=== PATIENT | male | born 1955 | race Caucasian/White ===

== ENCOUNTER → 2019-01-16 | Outpatient (CLI) | payer BC ==
[2016-06-19 16:10] VITALS: BP 109/66
[2019-01-16 10:40] LABS: BASO # 0.1 x10^3/uL (0.0-0.2); BASO % 1 % (0-3); EOS % 0 % (0-3); HEMATOCRIT 50.6 % (39.0-53.0); HEMOGLOBIN 17.2 g/dL (13.0-17.5); LYMPH # 0.6 x10^3/uL (1.0-4.8); LYMPH % 7 % (24-48); MEAN CORPUSCULAR HEMOGLOBIN 32 pg (25-35); MEAN CORPUSCULAR HGB CONC 34 g/dL (31-37); MEAN CORPUSCULAR VOLUME 95 fL (79-100); MONO # 0.9 x10^3/uL (0.0-1.1); MONO % 10 % (0-9); NEUT # 7.2 x10^3uL (1.8-7.7); NEUT % 82 % (31-73); PLATELET COUNT 169 x10^3/uL (140-400); RED BLOOD COUNT 5.32 x10^6/uL (4.30-5.70); RED CELL DISTRIBUTION WIDTH 12.5 % (11.5-14.5); WHITE BLOOD COUNT 8.8 x10^3/uL (4.0-11.0)
[2019-01-16 11:02] LABS: ALBUMIN 3.7 g/dL (3.4-5.0); ALBUMIN/GLOBULIN RATIO 0.9 (1.0-1.7); CALCIUM 9.1 mg/dL (8.5-10.1); CREATININE 1.8 mg/dL (0.7-1.3); GFR 38.3; POTASSIUM 4.4 mmol/L (3.5-5.1); TOTAL BILIRUBIN 0.5 mg/dL (0.2-1.0); TOTAL PROTEIN 7.6 g/dL (6.4-8.2)
--- NOTE | 2019-01-16 11:21 | RAD ---
KUB, 01/16/2019: HISTORY: Abdominal pain There are surgical clips in the lower pelvis, more numerous on the right. The abdominal gas pattern is unremarkable. There is no evidence organomegaly. Scattered arterial calcifications are present. There are mild degenerative changes in the spine. IMPRESSION: No acute abdominal abnormality is detected. Electronically signed by: Juan Srivastava MD (01/16/2019 11:18 AM) [facility]
--- NOTE | 2019-01-16 11:22 | RAD ---
Chest, 2 views, 01/16/2019: HISTORY: Cough The heart size is normal. There is a coronary artery radiopacity overlying the anterior aspect of the heart and compatible with calcification and/or a stent. No pulmonary infiltrate is seen. There is no evidence of pleural fluid. Mild spurring is present in the spine. IMPRESSION: No acute cardiopulmonary abnormality is detected. Electronically signed by: Juan Srivastava MD (01/16/2019 11:19 AM) [facility]
--- NOTE | 2019-01-16 11:56 | EKG ---
[address] [address] Test Date: 2019-01-16 Test Time: 11:00:44 Pat Name: DORA RUTH Department: Room: Gender: M [employer] Worker: : 1955 Requested By: SILVIANO PATEL Order Number: [id number] Reading MD: Measurements Intervals [place] Rate: 107 P: 68 MN: 136 QRS: -11 QRSD: 92 T: 31 QT: 328 QTc: 443 Interpretive Statements SINUS TACHYCARDIA LEFT ATRIAL ABNORMALITY LEFTWARD AXIS QRS(T) CONTOUR ABNORMALITY CONSIDER ANTEROSEPTAL MYOCARDIAL DAMAGE CONSISTENT WITH INFERIOR INFARCT PROBABLY OLD ABNORMAL ECG RI6.01 No previous ECG available for comparison
== END | disposition home or self-care (01) ==
LOC: LAB 10:16
PROVIDERS: ATTEND General Practice
DX: I70.8 Atherosclerosis of other arteries (principal); I49.9 Cardiac arrhythmia, unspecified
CPT/HCPCS: 36415; 71046; 74018; 80053; 82553; 84484; 85025; 93005

== ENCOUNTER 2019-03-02 15:14 | Emergency (ER) | payer BC ==
[~2019-03-02] VITALS: Ht 170 cm; Wt 88.5 kg
[2019-03-02 15:40] VITALS: BP 144/87
[2019-03-02 15:52] LABS: BASO # 0.1 x10^3/uL (0.0-0.2); BASO % 1 % (0-3); EOS # 0.1 x10^3/uL (0.0-0.7); EOS % 1 % (0-3); HEMATOCRIT 40.7 % (39.0-53.0); HEMOGLOBIN 13.4 g/dL (13.0-17.5); LYMPH # 0.5 x10^3/uL (1.0-4.8); LYMPH % 4 % (24-48); MEAN CORPUSCULAR HEMOGLOBIN 32 pg (25-35); MEAN CORPUSCULAR HGB CONC 33 g/dL (31-37); MEAN CORPUSCULAR VOLUME 97 fL (79-100); MONO # 0.9 x10^3/uL (0.0-1.1); MONO % 8 % (0-9); NEUT # 10.5 x10^3uL (1.8-7.7); NEUT % 87 % (31-73); PLATELET COUNT 206 x10^3/uL (140-400); RED BLOOD COUNT 4.18 x10^6/uL (4.30-5.70); RED CELL DISTRIBUTION WIDTH 13.4 % (11.5-14.5); WHITE BLOOD COUNT 12.1 x10^3/uL (4.0-11.0)
[2019-03-02 16:07] LABS: ALBUMIN 3.4 g/dL (3.4-5.0); CALCIUM 8.7 mg/dL (8.5-10.1); CREATININE 1.3 mg/dL (0.7-1.3); GFR 55.8; POTASSIUM 4.4 mmol/L (3.5-5.1); TOTAL BILIRUBIN 0.5 mg/dL (0.2-1.0); TOTAL PROTEIN 6.9 g/dL (6.4-8.2)
--- NOTE | 2019-03-02 17:18 | RAD ---
Exam: Ultrasound arterial study lower extremity right Indication: Swelling pain status post catheterization Technique: Real-time grayscale and color Doppler images of the right lower extremity were obtained by the department optometrist/practice owner. Comparisons: None FINDINGS: At the right groin in the area of bruising there is a 2.4 x 5.1 x 2.0 cm hypoechoic lobulated fluid collection without internal flow. No evidence of pseudoaneurysm. The right common femoral artery and right iliac vein demonstrate normal waveforms. Images labeled right common femoral vein series 1 image 14 are mislabeled and should read common femoral artery. IMPRESSION: 1. Hypoechoic lobulated fluid collection in the right groin measuring 2.4 x 5.1 x 2.0 cm likely representing hematoma, given procedural history. No internal flow detected. 2. No evidence for pseudoaneurysm. 3. Patent right external iliac and common femoral artery. Electronically signed by: Guy Thacker MD (03/02/2019 5:15 PM) [facility]
[2019-03-02] MEDS ORDERED: HYDR-3165 PO (17:22)
--- NOTE | 2019-03-02 17:23 | PHYS DOC ---
Past History Past Medical History: Angina, CAD Past Surgical History: No Surgical History Alcohol Use: Rarely Drug Use: None Adult General Chief Complaint Chief Complaint: POST-OP PROBLEM HPI HPI Patient is a [age] year old [sex] who presents with [] Review of Systems Review of Systems Constitutional: Denies fever or chills [] Eyes: Denies change in visual acuity, redness, or eye pain [] HENT: Denies nasal congestion or sore throat [] Respiratory: Denies cough or shortness of breath [] Cardiovascular: No additional information not addressed in HPI [] GI: Denies abdominal pain, nausea, vomiting, bloody stools or diarrhea [] : Denies dysuria or hematuria [] Musculoskeletal: Denies back pain or joint pain [] Integument: Denies rash or skin lesions [] Neurologic: Denies headache, focal weakness or sensory changes [] Endocrine: Denies polyuria or polydipsia [] All other systems were reviewed and found to be within normal limits, except as documented in this note. Allergies Allergies Allergies Coded Allergies Type Severity Reaction Last Updated Verified No Known Drug Allergies 06/19/16 No Physical Exam Physical Exam Constitutional: Well developed, well nourished, no acute distress, non-toxic appearance. [] HENT: Normocephalic, atraumatic, bilateral external ears normal, oropharynx moist, no oral exudates, nose normal. [] Eyes: PERRLA, EOMI, conjunctiva normal, no discharge. [] Neck: Normal range of motion, no tenderness, supple, no stridor. [] Cardiovascular:Heart rate regular rhythm, no murmur [] Lungs & Thorax: Bilateral breath sounds clear to auscultation [] Abdomen: Bowel sounds normal, soft, no tenderness, no masses, no pulsatile masses. [] Skin: Warm, dry, no erythema, no rash. [] Back: No tenderness, no CVA tenderness. [] Extremities: No tenderness, no cyanosis, no clubbing, ROM intact, no edema. [] Neurologic: Alert and oriented X 3, normal motor function, normal sensory function, no focal deficits noted. [] Psychologic: Affect normal, judgement normal, mood normal. [] Current Patient Data Vital Signs Vital Signs Date Time Temp Pulse Resp B/P (MAP) Pulse Ox O2 Delivery O2 Flow Rate FiO2 03/02/19 15:40 98.0 89 16 96 Room Air Lab Results Laboratory Tests Test 03/02/19 15:35 White Blood Count 12.1 x10^3/uL (4.0-11.0) H Red Blood Count 4.18 x10^6/uL (4.30-5.70) L Hemoglobin 13.4 g/dL (13.0-17.5) Hematocrit 40.7 % (39.0-53.0) Mean Corpuscular Volume 97 fL (79-100) Mean Corpuscular Hemoglobin 32 pg (25-35) Mean Corpuscular Hemoglobin Concent 33 g/dL (31-37) Red Cell Distribution Width 13.4 % (11.5-14.5) Platelet Count 206 x10^3/uL (140-400) Neutrophils (%) (Auto) 87 % (31-73) H Lymphocytes (%) (Auto) 4 % (24-48) L Monocytes (%) (Auto) 8 % (0-9) Eosinophils (%) (Auto) 1 % (0-3) Basophils (%) (Auto) 1 % (0-3) Neutrophils # (Auto) 10.5 x10^3uL (1.8-7.7) H Lymphocytes # (Auto) 0.5 x10^3/uL (1.0-4.8) L Monocytes # (Auto) 0.9 x10^3/uL (0.0-1.1) Eosinophils # (Auto) 0.1 x10^3/uL (0.0-0.7) Basophils # (Auto) 0.1 x10^3/uL (0.0-0.2) Prothrombin Time 10.1 SEC (9.4-11.4) Prothrombin Time INR 1.0 (0.9-1.1) PTT 26 SEC (23-33) Sodium Level 138 mmol/L (136-145) Potassium Level 4.4 mmol/L (3.5-5.1) Chloride Level 102 mmol/L (98-107) Carbon Dioxide Level 24 mmol/L (21-32) Anion Gap 12 (6-14) Blood Urea Nitrogen 24 mg/dL (8-26) Creatinine 1.3 mg/dL (0.7-1.3) Estimated GFR (Cockcroft-Gault) 55.8 BUN/Creatinine Ratio 18 (6-20) Glucose Level 130 mg/dL (70-99) H Calcium Level 8.7 mg/dL (8.5-10.1) Magnesium Level 2.0 mg/dL (1.8-2.4) Total Bilirubin 0.5 mg/dL (0.2-1.0) Aspartate Amino Transferase (AST) 19 U/L (15-37) Alanine Aminotransferase (ALT) 28 U/L (16-63) Alkaline Phosphatase 74 U/L (46-116) Total Protein 6.9 g/dL (6.4-8.2) Albumin 3.4 g/dL (3.4-5.0) Albumin/Globulin Ratio 1.0 (1.0-1.7) EKG EKG [] Radiology/Procedures Radiology/Procedures [] Course & Med Decision Making Course & Med Decision Making Pertinent Labs and Imaging studies reviewed. (See chart for details) [] Dragon Disclaimer Dragon Disclaimer This electronic medical record was generated, in whole or in part, using a voice recognition dictation system. Departure Departure: Impression: Primary Impression: Hematoma following percutaneous transluminal coronary angioplasty Disposition: HOME, SELF-CARE Condition: STABLE Referrals: SILVIANO PATEL DO (PCP) Patient Instructions: Hematoma, [id number] Additional Instructions: ICE area 20 min on then leave off for next 20 min as needed for next few days. Take it easy and try to limit excessive movement about hip. Keep area clean and dry. Your child welfare caseworker wants you to continue your prescribed medications and to call and make follow up appointment for the next 2-5 days Scripts Hydrocodone Bit/Acetaminophen (NORCO 5-325 TABLET) 1 Each Tablet 0.5-1 TAB PO Q6HRS PRN for PAIN, #10 TAB Prov: RUSLAN SCHAFFER DO 03/02/19 RUSLAN SCHAFFER DO Mar 02, 2019 17:23
[2019-03-02] MEDS ORDERED: HYDROcodone/APAP 5/325MG 1 TAB TABLET PO ONE (17:30)
== END 2019-03-02 17:25 | disposition home or self-care (01) ==
LOC: ER 15:14
DX: I97.638 Postprocedural hematoma of a circulatory system organ or structure following other circulatory system procedure (principal); I25.10 Atherosclerotic heart disease of native coronary artery without angina pectoris; Z98.61 Coronary angioplasty status
CPT/HCPCS: 36415; 80053; 83735; 85025; 85610; 85730; 93923; 99285

== ENCOUNTER 2019-08-17 16:50 | Emergency (ER) | payer BC ==
[~2019-08-17] VITALS: Ht 162.6 cm; Wt 95.3 kg
[~2019-08-17 16:50] MED LIST: HYDR-3165 PO
--- NOTE | 2019-08-17 17:54 | RAD ---
PA and lateral chest. HISTORY: Short of breath PA and lateral views were taken of the chest. This focal atelectasis or infiltrate along the left heart border. Heart is normal in size. There is no pleural effusion. No other infiltrates are noted. IMPRESSION: 1. Mild atelectasis or infiltrate along the left heart border which is new compared to the study study from December 2018. Electronically signed by: Francisco Kaplan MD (08/17/2019 5:51 PM) [id number]
[2019-08-17 18:22] LABS: BASO # 0.1 x10^3/uL (0.0-0.2); BASO % 1 % (0-3); EOS # 0.1 x10^3/uL (0.0-0.7); EOS % 1 % (0-3); HEMATOCRIT 43.7 % (39.0-53.0); HEMOGLOBIN 14.8 g/dL (13.0-17.5); LYMPH # 1.8 x10^3/uL (1.0-4.8); LYMPH % 12 % (24-48); MEAN CORPUSCULAR HEMOGLOBIN 34 pg (25-35); MEAN CORPUSCULAR HGB CONC 34 g/dL (31-37); MEAN CORPUSCULAR VOLUME 100 fL (79-100); MONO # 2.1 x10^3/uL (0.0-1.1); MONO % 14 % (0-9); NEUT # 10.5 x10^3uL (1.8-7.7); NEUT % 72 % (31-73); PLATELET COUNT 216 x10^3/uL (140-400); RED BLOOD COUNT 4.38 x10^6/uL (4.30-5.70); RED CELL DISTRIBUTION WIDTH 14.3 % (11.5-14.5); WHITE BLOOD COUNT 14.7 x10^3/uL (4.0-11.0)
[2019-08-17 18:29] LABS: CALCIUM 9.7 mg/dL (8.5-10.1); CREATININE 1.7 mg/dL (0.7-1.3); GFR 40.9; POTASSIUM 4.5 mmol/L (3.5-5.1)
[2019-08-17 18:37] LABS: BACTERIA,URINE 0 /HPF (0-FEW); BILIRUBIN,URINE NEG (NEG); CLARITY,URINE HAZY; COLOR,URINE AMBER; GLUCOSE,URINE 100 mg/dL (NEG); NITRITE,URINE NEG (NEG); RBC,URINE 0 /HPF (0-2); SQUAMOUS EPITHELIAL CELL,UR OCC /LPF; UROBILINOGEN,URINE 0.2 mg/dL (0.2 mg/dL); WBC,URINE 0 /HPF (0-4)
[2019-08-17 18:42] LABS: ALBUMIN 3.3 g/dL (3.4-5.0); ALBUMIN/GLOBULIN RATIO 0.9 (1.0-1.7); TOTAL BILIRUBIN 0.9 mg/dL (0.2-1.0); TOTAL PROTEIN 6.8 g/dL (6.4-8.2)
[2019-08-17] MEDS ORDERED: IV NORMAL SALINE 500ML 500 ML IV ONE (18:45)
--- NOTE | 2019-08-17 18:55 | PHYS DOC ---
Past History Past Medical History: Angina, CAD Additional Past Surgical Histo: Cardiac stents Smoking: Quit Greater Than 1 Year Alcohol Use: Rarely Drug Use: None Adult General Chief Complaint Chief Complaint: ABDOMINAL PAIN HPI HPI Patient is a 63-year-old male was presenting with chief complaint of dizzy and abdominal pain apparently for the last 24 hours or so he is been a little dizzy somewhat lightheaded when he tries to walk short of breath at baseline and also with exertion over the last day or 2. Denies chest pain no fever that he knows of is also had sharp left lower quadrant pain it was really bad when it started last night he started to get a little better but still dull in the left lower quadrant social with occasional blood when he wipes and some loose stool but no overt diarrhea positive nausea again denies chest pain just doesn't feel that good. Probably when he walks denies diplopia no known history of congestive heart failure that he knows of Review of Systems Review of Systems Constitutional: Denies fever or chills [] Eyes: Denies change in visual acuity, redness, or eye pain [] HENT: : Denies dysuria or hematuria [] Musculoskeletal: Denies back pain or joint pain [] All other systems were reviewed and found to be within normal limits, except as documented in this note. Mild cough Current Medications Current Medications Current Medications Medications (Trade) Dose Ordered Sig/Romero Start Time Stop Time Status Last Admin Dose Admin Levofloxacin/ Dextrose 150 ml @ 100 mls/hr 1X ONCE 08/17/19 18:45 08/17/19 20:14 Sodium Chloride 500 ml @ 0 mls/hr 1X ONCE 08/17/19 18:45 08/17/19 18:46 DC Allergies Allergies Allergies Coded Allergies Type Severity Reaction Last Updated Verified No Known Drug Allergies 06/19/16 No Physical Exam Physical Exam Constitutional: Well developed, well nourished, no acute distress, non-toxic appearance. [] HENT: Normocephalic, atraumatic, bilateral external ears normal, oropharynx moist, no oral exudates, nose normal. [] Eyes: PERRLA, EOMI, conjunctiva normal, no discharge. [] Neck: Normal range of motion, no tenderness, supple, no stridor. [] Cardiovascular:Heart rate regular rhythm, no murmur [] Lungs & Thorax: Bilateral breath sounds clear to auscultation [] Abdomen: Bowel sounds normal, soft, left lower quadrant tenderness mild, no masses, no pulsatile masses. [] Skin: Scattered ecchymosis noted throughout the body patient states this is just from touching his skin while he is on Radha Leora Back: No tenderness, no CVA tenderness. [] Extremities: No tenderness, no cyanosis, no clubbing, ROM intact, no edema. [] Neurologic: Alert and oriented X 3, normal motor function, normal sensory function, no focal deficits noted. [][id number] intact bilaterally extraocular movements intact no nystagmus speech normal Psychologic: Affect normal, judgement normal, mood normal. [] Current Patient Data Vital Signs erature (Fahrenheit): * 98.1 degrees F (97.6-99.5) Patient Temperature * 98.1 degrees F (97.5-99.5) Temperature Source * Oral Blood Pressure Systolic * 141 mm Hg (100-140) H Blood Pressure Diastolic * 84 mm Hg (60-100) Blood Pressure Mean * 103 mm Hg Blood Pressure Location * Right Arm Blood Pressure Source * Automatic Cuff Pulse Rate * 96 beats per minute (60-90) H Pulse Assessment Method * Monitor Respiratory Rate * 24 breaths per minute (12-24) Oxygen Delivery Method * Room Air Bedside Pulse Oximetry * 97 % Treatment Prior to Arrival Lab Results Laboratory Tests Test 08/17/19 17:52 08/17/19 18:00 Urine Collection Type Unknown Urine Color [place] Urine Clarity Hazy Urine pH 5.5 Urine Specific [place] >=1.030 Urine Protein 30 mg/dl (NEG-TRACE) Urine Glucose (UA) 100 mg/dL (NEG) Urine Ketones (Stick) 15 mg/dL (NEG) Urine Blood Neg (NEG) Urine Nitrite Neg (NEG) Urine Bilirubin Neg (NEG) Urine Urobilinogen Dipstick 0.2 mg/dL (0.2 mg/dL) Urine Leukocyte Esterase Neg (NEG) Urine RBC 0 /HPF (0-2) Urine WBC 0 /HPF (0-4) Urine Squamous Epithelial Cells Occ /LPF Urine Bacteria 0 /HPF (0-FEW) Urine Mucus Marked /LPF White Blood Count 14.7 x10^3/uL (4.0-11.0) H Red Blood Count 4.38 x10^6/uL (4.30-5.70) Hemoglobin 14.8 g/dL (13.0-17.5) Hematocrit 43.7 % (39.0-53.0) Mean Corpuscular Volume 100 fL (79-100) Mean Corpuscular Hemoglobin 34 pg (25-35) Mean Corpuscular Hemoglobin Concent 34 g/dL (31-37) Red Cell Distribution Width 14.3 % (11.5-14.5) Platelet Count 216 x10^3/uL (140-400) Neutrophils (%) (Auto) 72 % (31-73) Lymphocytes (%) (Auto) 12 % (24-48) L Monocytes (%) (Auto) 14 % (0-9) H Eosinophils (%) (Auto) 1 % (0-3) Basophils (%) (Auto) 1 % (0-3) Neutrophils # (Auto) 10.5 x10^3uL (1.8-7.7) H Lymphocytes # (Auto) 1.8 x10^3/uL (1.0-4.8) Monocytes # (Auto) 2.1 x10^3/uL (0.0-1.1) H Eosinophils # (Auto) 0.1 x10^3/uL (0.0-0.7) Basophils # (Auto) 0.1 x10^3/uL (0.0-0.2) Sodium Level 138 mmol/L (136-145) Potassium Level 4.5 mmol/L (3.5-5.1) Chloride Level 101 mmol/L (98-107) Carbon Dioxide Level 32 mmol/L (21-32) Anion Gap 5 (6-14) L Blood Urea Nitrogen 27 mg/dL (8-26) H Creatinine 1.7 mg/dL (0.7-1.3) H Estimated GFR (Cockcroft-Gault) 40.9 BUN/Creatinine Ratio 16 (6-20) Glucose Level 112 mg/dL (70-99) H Calcium Level 9.7 mg/dL (8.5-10.1) Total Bilirubin 0.9 mg/dL (0.2-1.0) Aspartate Amino Transferase (AST) 16 U/L (15-37) Alanine Aminotransferase (ALT) 40 U/L (16-63) Alkaline Phosphatase 88 U/L (46-116) JL-Wlk-[id number]-Type Natriuretic Peptide 1177 pg/mL (0-124) H Total Protein 6.8 g/dL (6.4-8.2) Albumin 3.3 g/dL (3.4-5.0) L Albumin/Globulin Ratio 0.9 (1.0-1.7) L EKG EKG []EKG shows a normal sinus rhythm with a rate of 89 QTC is 427 Q waves in the inferior leads borderline ST segment depression in V5 an V6 no STEMI Radiology/Procedures Radiology/Procedures []No suspicious osseous lesions or acute fractures. IMPRESSION: 1. Findings of acute simple diverticulitis at the descending colon/sigmoid colon junction. No evidence for perforation or adjacent abscess. 2. No renal or ureteral calculi. No evidence for obstructive uropathy. Exposure: One or more of the following in the visualized dose reduction techniques were utilized for this examination: 1. Automated exposure control 2. Adjustment of the MA and/or KV according to patient size 3. Use of iterative of reconstructive technique Electronically signed by: Guy Thacker MD (08/17/2019 8:07 PM) [facility] Impressions: PA and lateral views were taken of the chest. This focal atelectasis or infiltrate along the left heart border. Heart is normal in size. There is no pleural effusion. No other infiltrates are noted. IMPRESSION: 1. Mild atelectasis or infiltrate along the left heart border which is new compared to the study study from December 2018. Electronically signed by: Francisco Kaplan MD (08/17/2019 5:51 PM) [facility] DICTATED AND SIGNED BY: FRANCISCO KAPLAN MD DATE: 08/17/19 1753 CC: JEET CHOUDHURY DO; PCP,NO ~ Course & Med Decision Making Course & Med Decision Making Pertinent Labs and Imaging studies reviewed. (See chart for details) []Mild WISAM consistent with likely dehydration. BNP is elevated This is a 63-year-old male with a history of rheumatoid arthritis on prednisone Radha Leora due to atrial fibrillation 3 cardiac stents stroke 2 also on Plavix was presenting with multiple complaints dizzy lightheaded left lower quadrant pain and some increased shortness of breath with exertion. His stent placed a few months back were primary complaint was shortness of breath as well. That was [facility] at [facility]. Differential would include anemia diverticulitis UTI pneumonia CVA no objective neurologic findings however. Final plan: 62-year-old male prior CVA prior [place] present with dizziness lightheadedness in the setting of left lower quadrant pain found to have simple diverticulitis with leukocytosis and a mild bump in the creatinine. Could be a pneumonia is not really coughing however and the chest x-ray finding by my read is fairly subtle. I discussed with the patient and the in detail I spent 10-15 minutes talking to them about the findings specific findings I told him I preferred admission for hydration and IV antibiotics and close monitoring. Also consideration of echocardiogram due to the shortness of breath in the mild elevation of BNP. The patient says he is feeling better and he really does not want to be admitted. He understands the risks and benefits as elevated amount to him he understands that he could get worse we gave strict return precautions and he will come back anytime I think it is overall reasonable for him to try this at home although I did prefer admission. He understands up her prescription for Augmentin was provided patient is oxygenating well on room air vital signs are stable, noted the respiratory rate by the nurses my respiratory rate was 16 on evaluation. Dragon Disclaimer Dragon Disclaimer This electronic medical record was generated, in whole or in part, using a voice recognition dictation system. Departure Departure: Impression: Primary Impression: Diverticulitis Additional Impression: Dehydration Disposition: 01 HOME, SELF-CARE Condition: STABLE Referrals: PCP,NO (PCP) Scripts Amoxicillin/Potassium Clav (AUGMENTIN 875-125 TABLET) 1 Each Tablet 1 TAB PO BID for diverticulitis for 10 Days, #20 TAB 0 Refills Prov: WAI RASCON MD 08/17/19 Problem Qualifiers WAI RASCON MD Aug 17, 2019 18:54
[2019-08-17 19:16] VITALS: BP 111/61
--- NOTE | 2019-08-17 19:42 | RAD ---
STUDY: CT head without contrast INDICATION: Dizziness. Headache. COMPARISON: 06/19/2016 TECHNIQUE: Axial CT imaging through the head without the use of intravenous contrast. Sagittal and coronal reformats were obtained. One or more of the following individualized dose reduction techniques were utilized for this examination: 1. Automated exposure control 2. Adjustment of the mA and/or kV according to patient size 3. Use of iterative reconstruction technique. FINDINGS: Mild motion degradation. Diagnostic utility is mostly maintained. No acute intracranial hemorrhage. No mass effect, midline shift or hydrocephalus. No CT evidence for an acute cortical infarction. Parenchymal volume loss. White matter findings most likely on account of chronic microvascular ischemic change. Intracranial atherosclerotic calcifications. Intact calvarium. Mild sphenoid sinus mucosal thickening and a potential retention cyst. IMPRESSION: No acute intracranial abnormality by CT. Chronic findings as above. Electronically signed by: COLBY HANSEN MD (08/17/2019 7:39 PM) [facility]
--- NOTE | 2019-08-17 19:51 | EKG ---
[address] [address] Test Date: 2019-08-17 Test Time: 18:30:32 Pat Name: DORA RUTH Department: Room: Gender: M It Account Manager: : 1955 Requested By: JEET CHOUDHURY Order Number: [id number] Reading MD: Measurements Intervals [place] Rate: 89 P: 48 CO: 144 QRS: 0 QRSD: 88 T: 36 QT: 346 QTc: 427 Interpretive Statements SINUS RHYTHM LEFTWARD AXIS LOW LIMB LEAD VOLTAGE QRS(T) CONTOUR ABNORMALITY CONSISTENT WITH INFERIOR INFARCT PROBABLY OLD ABNORMAL ECG RI6.01 No previous ECG available for comparison
--- NOTE | 2019-08-17 20:11 | RAD ---
Exam: CT abdomen and pelvis without contrast INDICATION: Left lower quadrant pain, flank pain TECHNIQUE: Sequential axial images through the abdomen and pelvis obtained without IV contrast. Sagittal and coronal reformatted images were reconstructed from the axial data and reviewed. Comparisons: None FINDINGS: Heart size is normal. No pericardial effusion. Visualized lung bases are clear. No pleural effusion. Evaluation of the solid organs is limited secondary to noncontrast technique. Liver, spleen, pancreas, gallbladder and adrenals are unremarkable. No perinephric inflammation or hydronephrosis. No renal or ureteral calculi. Bladder is decompressed not well evaluated. Prostate is not enlarged. There is diverticulosis of the sigmoid colon with an area of wall thickening and adjacent fat stranding at the descending colon/sigmoid colon junction. No evidence for perforation or adjacent fluid collection. Remainder of the large and small bowel are unremarkable. Appendix is normal. No free intra-abdominal air or fluid. Abdominal aorta has normal course and caliber. No enlarged abdominal lymph nodes are identified. No suspicious osseous lesions or acute fractures. IMPRESSION: 1. Findings of acute simple diverticulitis at the descending colon/sigmoid colon junction. No evidence for perforation or adjacent abscess. 2. No renal or ureteral calculi. No evidence for obstructive uropathy. Exposure: One or more of the following in the visualized dose reduction techniques were utilized for this examination: 1. Automated exposure control 2. Adjustment of the MA and/or KV according to patient size 3. Use of iterative of reconstructive technique Electronically signed by: Guy Thacker MD (08/17/2019 8:07 PM) [facility]
[2019-08-17] MEDS ORDERED: AMOX1TAB61 PO (20:37)
[2019-08-17] MEDS ORDERED: AMOXICILLIN/K CLAV 875/125MG TABLET. PO ONE (20:45)
== END 2019-08-17 20:47 | disposition home or self-care (01) ==
LOC: ER 16:50
DX: K57.30 Diverticulosis of large intestine without perforation or abscess without bleeding (principal); E86.0 Dehydration; I25.10 Atherosclerotic heart disease of native coronary artery without angina pectoris; Z87.891 Personal history of nicotine dependence
CPT/HCPCS: 36415; 70450; 71046; 74176; 80053; 81001; 83605; 83880; 84484; 85025; 93005; 96365; 99285; J1956; J7040; 87040

== ENCOUNTER 2019-08-19 23:18 | Emergency (ER) | payer BC ==
[~2019-08-19] VITALS: Ht 162.6 cm; Wt 88.5 kg
[~2019-08-19 23:18] MED LIST changes: +AMOX1TAB61 PO
[2019-08-20] MEDS ORDERED: IV NORMAL SALINE 1,000ML 1,000 ML IV ONE (00:30)
[2019-08-20 00:38] LABS: BASO # 0.1 x10^3/uL (0.0-0.2); BASO % 1 % (0-3); EOS # 0.1 x10^3/uL (0.0-0.7); EOS % 1 % (0-3); HEMATOCRIT 44.3 % (39.0-53.0); HEMOGLOBIN 15.1 g/dL (13.0-17.5); LYMPH # 2.2 x10^3/uL (1.0-4.8); LYMPH % 18 % (24-48); MEAN CORPUSCULAR HEMOGLOBIN 33 pg (25-35); MEAN CORPUSCULAR HGB CONC 34 g/dL (31-37); MEAN CORPUSCULAR VOLUME 97 fL (79-100); MONO # 1.5 x10^3/uL (0.0-1.1); MONO % 12 % (0-9); NEUT # 8.4 x10^3uL (1.8-7.7); NEUT % 68 % (31-73); PLATELET COUNT 261 x10^3/uL (140-400); RED BLOOD COUNT 4.56 x10^6/uL (4.30-5.70); RED CELL DISTRIBUTION WIDTH 14.1 % (11.5-14.5); WHITE BLOOD COUNT 12.4 x10^3/uL (4.0-11.0)
[2019-08-20 00:40] VITALS: BP 114/55
[2019-08-20 00:42] LABS: CREATININE 1.6 mg/dL (0.7-1.3); GFR 43.9; POTASSIUM 4.6 mmol/L (3.5-5.1)
[2019-08-20 00:48] LABS: FECAL OB PT POSITIVE (NEG)
[2019-08-20 00:48] LABS: ALBUMIN 3.5 g/dL (3.4-5.0); ALBUMIN/GLOBULIN RATIO 0.8 (1.0-1.7); TOTAL BILIRUBIN 0.9 mg/dL (0.2-1.0); TOTAL PROTEIN 7.9 g/dL (6.4-8.2)
--- NOTE | 2019-08-20 00:58 | PHYS DOC ---
Past History Past Medical History: Angina, CAD, High Cholesterol, Hypertension Past Surgical History: Other Additional Past Surgical Histo: Cardiac stents Smoking: Quit Greater Than 1 Year Alcohol Use: Occasionally Drug Use: None Adult General Chief Complaint Chief Complaint: RECTAL BLEED [facility] HPI 63-year-old male presents with rectal bleeding. He has had bright red rectal bleeding and rectal pain for the last couple of days. The patient was diagnosed 2 days ago with diverticulitis and placed on Augmentin. He was not having rectal bleeding at that time. The patient is on Eliquis for atrial fibrillation and Plavix for cardiac stents. He continues to have stool mixed with his blood. His rectum is very sore at this time. He has been using some Preparation H. Patient denies nausea, vomiting, lightheadedness, headache. Denies fever or chills. He has no abdominal pain. Review of Systems Review of Systems Constitutional: Denies fever or chills [] Eyes: Denies change in visual acuity, redness, or eye pain [] HENT: Denies nasal congestion or sore throat [] Respiratory: Denies cough or shortness of breath [] Cardiovascular: No additional information not addressed in HPI [] GI: Denies abdominal pain, nausea, vomiting, bloody stools or diarrhea [] : Rectal bleeding[] Musculoskeletal: Denies back pain or joint pain [] Integument: Denies rash or skin lesions [] Neurologic: Denies headache, focal weakness or sensory changes [] Endocrine: Denies polyuria or polydipsia [] All other systems were reviewed and found to be within normal limits, except as documented in this note. Current Medications Current Medications Current Medications Medications (Trade) Dose Ordered Sig/Romero Start Time Stop Time Status Last Admin Dose Admin Sodium Chloride 1,000 ml @ 1,000 mls/hr 1X ONCE 08/20/19 00:30 08/20/19 01:29 08/20/19 00:17 1,000 MLS/HR Allergies Allergies Allergies Coded Allergies Type Severity Reaction Last Updated Verified No Known Drug Allergies 06/19/16 No Physical Exam Physical Exam Constitutional: Well developed, well nourished, no acute distress, non-toxic appearance. [] HENT: Normocephalic, atraumatic, bilateral external ears normal, oropharynx moist, no oral exudates, nose normal. [] Eyes: PERRLA, EOMI, conjunctiva normal, no discharge. [] Neck: Normal range of motion, no tenderness, supple, no stridor. [] Cardiovascular:Heart rate regular rhythm, no murmur [] Lungs & Thorax: Bilateral breath sounds clear to auscultation [] Abdomen: Bowel sounds normal, soft, no tenderness, no masses, no pulsatile masses. [] Skin: Warm, dry, no erythema, no rash. [] Back: No tenderness, no CVA tenderness. [] Extremities: No tenderness, no cyanosis, no clubbing, ROM intact, no edema. [] Neurologic: Alert and oriented X 3, normal motor function, normal sensory function, no focal deficits noted. [] Psychologic: Affect normal, judgement normal, mood normal. Rectal: Erythematous and irritated skin around the rectum. No obvious hemorrhoids. Tenderness with exam. No obvious blood with GIOVANNA. [] EKG EKG [] Radiology/Procedures Radiology/Procedures [] Course & Med Decision Making Course & Med Decision Making Pertinent Labs and Imaging studies reviewed. (See chart for details) Patient's labs are unremarkable. He is not anemic. I will advise the patient to hold his elbow is for 1 or 2 days. I will have him continue his Plavix due to the stents. He will follow-up with his physician for further guidance on Wednesday morning. He is stable for discharge at this time. [] Dragon Disclaimer Dragon Disclaimer This electronic medical record was generated, in whole or in part, using a voice recognition dictation system. Departure Departure: Impression: Primary Impression: Rectal bleeding Disposition: HOME, SELF-CARE Condition: STABLE Referrals: PCP,[facility] (PCP) Patient Instructions: Rectal Bleeding, [id number] JEET CHOUDHURY DO Aug 20, 2019 00:58
== END 2019-08-20 01:05 | disposition home or self-care (01) ==
LOC: ER 23:18
DX: K62.5 Hemorrhage of anus and rectum (principal); E78.00 Pure hypercholesterolemia, unspecified; I10 Essential (primary) hypertension; I25.10 Atherosclerotic heart disease of native coronary artery without angina pectoris; Z87.891 Personal history of nicotine dependence
CPT/HCPCS: 36415; 80053; 82274; 85025; 99284-25; J7030

== ENCOUNTER 2019-10-14 03:49 | Inpatient (IN) | payer BC ==
[~2019-10-14] VITALS: Ht 165.1 cm; Wt 92.3 kg
[2019-10-14] MEDS ORDERED: metroNIDAZOLE 500mg PREMIX 500 MG/100 ML BAG IV ONE (07:00)
[2019-10-14] MEDS ORDERED: ONDANSETRON PF 4 MG/2 ML VIAL. ONE ×2 (07:02→07:30)
[2019-10-14] MEDS ORDERED: CIPROFLOXACIN PREMIX 400 MG/200 ML BAG IV ONE (07:30)
[2019-10-14 10:50] VITALS: BP 136/90
[2019-10-14] MEDS ORDERED: ATORVASTATIN CA80 MG PO (13:09)
[2019-10-14] MEDS ORDERED: RAMI10CA53 PO (13:09)
[2019-10-14] MEDS ORDERED: EZET10TA20 PO (13:09)
[2019-10-14] MEDS ORDERED: APIX5TAB3 PO (13:09)
[2019-10-14] MEDS ORDERED: ICOS1CAP PO (13:09)
[2019-10-14] MEDS ORDERED: PRED-220 PO (13:09)
[2019-10-14] MEDS ORDERED: GABA600T7 PO (13:09)
[2019-10-14] MEDS ORDERED: METO-239 PO (13:09)
[2019-10-14] MEDS ORDERED: CLOP75TA57 PO (13:09)
[2019-10-14] MEDS ORDERED: DILT120C99 PO (13:11)
[2019-10-14] MEDS ORDERED: IV NORMAL SALINE 1,000ML 1,000 ML IV SCH (13:15)
[2019-10-14] MEDS ORDERED: fentaNYL PF 250 MCG/5 ML VIAL IV ONE (13:15)
[2019-10-14 14:04] LABS: FECAL OB PT POSITIVE (NEG)
[2019-10-14 14:09] LABS: HEMATOCRIT 45.1 % (39.0-53.0); HEMOGLOBIN 15.2 g/dL (13.0-17.5); MEAN CORPUSCULAR HEMOGLOBIN 34 pg (25-35); MEAN CORPUSCULAR HGB CONC 34 g/dL (31-37); MEAN CORPUSCULAR VOLUME 101 fL (79-100); RED BLOOD COUNT 4.47 x10^6/uL (4.30-5.70); WHITE BLOOD COUNT 15.4 x10^3/uL (4.0-11.0)
[2019-10-14 14:10] LABS: BASO # 0.1 x10^3/uL (0.0-0.2); BASO % 1 % (0-3); EOS # 0.1 x10^3/uL (0.0-0.7); EOS % 1 % (0-3); LYMPH # 1.2 x10^3/uL (1.0-4.8); LYMPH % 8 % (24-48); MONO # 1.8 x10^3/uL (0.0-1.1); MONO % 12 % (0-9); NEUT # 12.2 x10^3uL (1.8-7.7); NEUT % 79 % (31-73); PLATELET COUNT 197 x10^3/uL (140-400); RED CELL DISTRIBUTION WIDTH 13.7 % (11.5-14.5)
[2019-10-14 14:15] LABS: % ATYL 4 % (0-0); % BANDS 3 % (0-9); % BASOS 1 % (0-3); % EOS 0 % (0-5); % LYMPHS 8 % (24-48); % MONOS 14 % (0-10); % SEGS 70 % (35-66); PLT ESTIMATE ADEQUATE (ADEQUATE)
[2019-10-14 14:21] LABS: ALBUMIN 3.5 g/dL (3.4-5.0); CALCIUM 8.9 mg/dL (8.5-10.1); CREATININE 1.4 mg/dL (0.7-1.3); TOTAL BILIRUBIN 0.5 mg/dL (0.2-1.0); TOTAL PROTEIN 7.1 g/dL (6.4-8.2)
[2019-10-14 14:24] LABS: DIRECT BILIRUBIN 0.2 mg/dL (0.0-0.2); POTASSIUM 3.9 mmol/L (3.5-5.1)
[2019-10-14 15:00] VITALS: BP 158/83
[2019-10-14] MEDS: IV 1/2 NORMAL SALINE 1,000 ML IV SCH (15:14)
[2019-10-14 15:18] LABS: BACTERIA,URINE FEW /HPF (0-FEW); BILIRUBIN,URINE NEG (NEG); CLARITY,URINE HAZY; COLOR,URINE AMBER; GLUCOSE,URINE NEG (NEG); NITRITE,URINE NEG (NEG); UROBILINOGEN,URINE 0.2 mg/dL (0.2 mg/dL)
[2019-10-14 15:19] LABS: RBC,URINE 0 /HPF (0-2); SQUAMOUS EPITHELIAL CELL,UR OCC /LPF; WBC,URINE OCC /HPF (0-4)
[2019-10-14 15:20] LABS: AMORPHOUS SEDIMENT,UR PRESENT /HPF
--- NOTE | 2019-10-14 16:14 | HP ---
ADMIT DATE: 10/14/2019 HISTORY OF PRESENT ILLNESS: The patient is a 64-year-old male patient who presented to the Emergency Room with complaint of left lower quadrant and suprapubic area abdominal pain associated with diarrhea, but no nausea, no vomiting. No hematemesis, melena or hematochezia. His complaints started last and he came early this morning to the Emergency Room where he was evaluated and was found to have acute diverticulitis with what seemed to be intramural abscess, but no drainable abscess. Unfortunately, the CT scan report is still not available on the computer. I have only the verbal report from the ER physician. His lab work showed that he has leukocytosis, white cell count 15,400. His chemistry showed he has slightly impaired kidney function and urinalysis was mostly unremarkable. The patient was admitted with acute diverticulitis. PAST MEDICAL HISTORY: Significant for hypertension, borderline type 2 diabetes mellitus, hyperlipidemia, coronary artery disease status post myocardial infarction, status post PCI with stent deployment x 3, has generalized osteoarthritis and TIA x 2, has also what seemed to be prostate cancer status post prostatectomy. PAST SURGICAL HISTORY: Significant for prostatectomy as well as PCI with stent deployment x 3. ALLERGIES: He has no known drug allergies. MEDICATIONS: He is currently on following medications: He is on apixaban 5 mg p.o. b.i.d., Plavix 75 mg once a day, Zetia 10 mg once a day, atorvastatin calcium 80 mg once a day, Vascepa 1 capsule twice a day, metoprolol succinate 25 mg daily, diltiazem 120 mg daily, ramipril 10 mg twice a day, gabapentin 600 mg 3 times a day, prednisone 10 mg daily. FAMILY HISTORY: He has one sister older and alive, but he has not seen her for a long time. His brother is older also and is , but he does not know the cause of his . Both parents are , but he does not know their age or the cause of their . SOCIAL HISTORY: He is , has a son and a daughter. He quit smoking 3 years ago. He drinks alcohol occasionally. 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 REVIEW OF SYSTEMS: The patient denied any blurring of vision, cataract, glaucoma or macular degeneration. Denied any earache, tinnitus or sensorineural deafness. Denied any nosebleeds, stuffy nose or postnasal drip. Denied any sore throat, sore tongue, toothache, hoarseness of voice or difficulty swallowing. Denied any nausea, vomiting, diarrhea or constipation. Denied any hematemesis, melena or hematochezia. Denied any dysuria, frequency or hematuria. Denied any chest pain, shortness of breath, orthopnea, paroxysmal nocturnal dyspnea. Denied any cough, phlegm or hemoptysis. Denied any chills, rigors or fever. LABORATORY DATA: In the Emergency Room, his lab work showed that his white cell count was 15,400, hemoglobin 15, hematocrit 45, MCV 101 and platelet count of 197,000 with normal manual differential. His chemistry showed a serum sodium 139, potassium 102, bicarbonate 27, anion gap of 10, BUN 26, creatinine 1.4, estimated GFR was 51 mL per minute. His glucose was 137, calcium was 8.9. Total bilirubin, AST, ALT, alkaline phosphatase were normal. Total protein 7.1, albumin was 3.5. His prothrombin time, INR and aPTT are normal. His stool for occult blood was positive. RADIOGRAPHIC DATA: He did have a CT scan of the abdomen and pelvis, which showed that he had diverticulitis, I do not have the actual report with me here. PLAN: To keep him basically n.p.o., continue with pain management, IV ciprofloxacin as well as Flagyl. We will monitor his labs closely and probably repeat his CT scan, if there is any change in his clinical status to make sure he does not have any perforation or abscess formation. PAKO LIRA MD DR: JAVI/devin JOB#: [id number] / [id number]
--- NOTE | 2019-10-14 16:19 | RAD ---
EXAM: Abdomen and pelvis CT with intravenous contrast. HISTORY: Pain. TECHNIQUE: Computed tomographic images of the abdomen and pelvis were obtained following the administration of intravenous contrast. Multiplanar reformatting was performed. *One or more of the following individualized dose reduction techniques were utilized for this examination: 1. Automated exposure control. 2. Adjustment of the mA and/or kV according to patient size. 3. Use of iterative reconstruction technique. COMPARISON: 08/17/2000. FINDINGS: Evaluation of the lower thorax demonstrates lingular and right middle lobe atelectasis or scarring. There is no infiltrate or pleural effusion. The heart is normal in size. There is a 7 mm hypodense lesions within the anterior right hepatic lobe, too small to characterize. The gallbladder, pancreas, spleen and adrenal glands are unremarkable. There is a 1.9 cm simple appearing cyst within the posterior lower mid zone of the right kidney. There are suspected additional tiny bilateral renal cortical cysts. There is no hydronephrosis. There is no appendicitis. There is colonic diverticulosis. There is superimposed segmental wall thickening with surrounding fatty stranding and trace fluid involving the mid sigmoid colon due to acute diverticulitis. No free air or drainable abscess is seen. The bladder is empty. There is evidence of prior right inguinal surgery. There is aortic and aortic branch vessel atherosclerosis. There is no aneurysm. There is no lymphadenopathy. There is no suspicious osseous lesion. There is degenerative change throughout the spine and there is a transitional lumbosacral segment. IMPRESSION: 1. Acute diverticulitis involving the mid sigmoid colon. No bowel perforation or drainable fluid collection is seen. 2. Stable tiny hypodense lesion within the anterior right hepatic lobe. In the absence of known malignancy, this likely a cyst or tiny hemangioma. 3. Simple appearing right renal cyst. There are few additional tiny cortical cysts which are too small to characterize. Electronically signed by: Tamica Staton MD (10/14/2019 4:16 PM) [facility] [place]
[2019-10-14] MEDS ORDERED: LORazepam 1 MG TABLET PO PRN (18:15)
[2019-10-14] MEDS ORDERED: diphenhydrAMINE 50 MG/ML VIAL IVP PRN (18:15)
[2019-10-14] MEDS ORDERED: cloNIDine HCL 0.1 MG TABLET PO PRN (18:15)
[2019-10-14] MEDS: FOLIC ACID 1 MG TABLET PO SCH (19:00)
[2019-10-14] MEDS: THIAMINE 100 MG TABLET. PO SCH (19:00)
[2019-10-14 19:35] VITALS: BP 139/84
[2019-10-14] MEDS: CIPROFLOXACIN 400MG PREMIX 200 ML IV SCH (20:43)
[2019-10-14] MEDS ORDERED: CIPROFLOXACIN 400MG PREMIX 200 ML IV SCH (21:00)
[2019-10-15] MEDS: IV 1/2 NORMAL SALINE 1,000 ML IV SCH ×4 (02:19→20:17)
[2019-10-15 06:04] VITALS: BP 126/87
[2019-10-15 06:48] LABS: HEMATOCRIT 37.2 % (39.0-53.0); HEMOGLOBIN 12.5 g/dL (13.0-17.5); RED BLOOD COUNT 3.68 x10^6/uL (4.30-5.70); RED CELL DISTRIBUTION WIDTH 13.7 % (11.5-14.5); WHITE BLOOD COUNT 8.2 x10^3/uL (4.0-11.0)
[2019-10-15 07:07] LABS: ALBUMIN 2.9 g/dL (3.4-5.0); ALBUMIN/GLOBULIN RATIO 0.9 (1.0-1.7); CREATININE 1.2 mg/dL (0.7-1.3); POTASSIUM 3.6 mmol/L (3.5-5.1); TOTAL BILIRUBIN 0.7 mg/dL (0.2-1.0); TOTAL PROTEIN 6.1 g/dL (6.4-8.2)
[2019-10-15] MEDS: THIAMINE 100 MG TABLET. PO SCH (08:13)
[2019-10-15] MEDS: CIPROFLOXACIN 400MG PREMIX 200 ML IV SCH ×2 (08:13→20:28)
[2019-10-15] MEDS: FOLIC ACID 1 MG TABLET PO SCH (08:13)
[2019-10-15 11:40] VITALS: BP 134/88
--- NOTE | 2019-10-15 14:17 | PN ---
DATE: 10/15/2019 SUBJECTIVE: The patient is resting, slightly propped up in bed, in no apparent respiratory distress. He continued to complain of pain mostly in the left lower quadrant; however, denied any nausea or vomiting, has had no further episodes of diarrhea. Denied any chills, rigors or fever. PHYSICAL EXAMINATION: GENERAL: When I examined him this morning, he looked well. No pallor, jaundice, cyanosis, or thyromegaly. No jugular venous distention or limb edema. VITAL SIGNS: Her heart rate was 80, blood pressure was 134/88, temperature was 98, respiratory rate was 20, and oxygen saturation was 97% on room air. HEAD, EYES, EARS, NOSE AND THROAT: Showed normocephalic, atraumatic. NECK: Supple. CARDIAC: Normal first and second heart sounds. No gallop or murmur. CHEST: Clear to auscultation. No crepitation or rhonchi. ABDOMEN: Distended. Tenderness mostly in the left lower quadrant and suprapubic area. There is no guarding or rigidity. No organomegaly. Bowel sounds are normal. NEUROLOGIC: He was grossly intact. His intake and output are incompletely recorded. LABORATORY DATA: Showed white cell count down to 8,200, hemoglobin 12.5, hematocrit 37, MCV 101 and platelet count of 161,000. Serum sodium was 141, potassium 3.6, chloride 105, bicarbonate 25, anion gap of 11, BUN 14, creatinine 1.2, estimated GFR was 61 mL per minute. His glucose 115, calcium was 8. Total bilirubin, AST, ALT, alkaline phosphatase were normal. Total protein 6.1. Albumin was 2.9. Urinalysis is unremarkable. Prothrombin time, INR and aPTT are normal. Stool for occult blood was positive. CT scan of the abdomen and pelvis showed that the patient has acute diverticulitis involving the mid sigmoid colon. No bowel perforation or drainable fluid collection is seen. Stable tiny hypodense lesion within the anterior right hepatic lobe and absence of known malignancy, this is likely a cyst or tiny hemangioma, simple appearing right renal cyst. There are few additional tiny cortical cysts, which are too small to characterize. In summary, this is a 64-year-old male patient who was admitted with abdominal pain, mostly in the left lower quadrant suprapubic area. CT scan showed that he has acute diverticulitis with also marked leukocytosis. He has also acute on chronic kidney injury. The patient was started on IV fluid and ciprofloxacin as well as Flagyl. He is doing much better. His white cell count is down from 15,400 to 8.2. He has dramatic drop in his hemoglobin and hematocrit some with probably hemodilution, as he was on IV fluid. He was dehydrated. His creatinine is also coming down from 1.4 to 1.2. PLAN: To continue with IV fluid, continue with IV antibiotic. We will start him on a clear liquid diet and advance as tolerated. He probably can go home tomorrow on oral Cipro and Flagyl. PAKO LIRA MD DR: JAVI/devin JOB#: [id number] / [id number]
[2019-10-15 15:56] VITALS: BP 136/87
[2019-10-15 19:10] VITALS: BP 140/90
[2019-10-16] MEDS: IV 1/2 NORMAL SALINE 1,000 ML IV SCH (05:45)
[2019-10-16 06:14] VITALS: BP 123/77
[2019-10-16 06:50] LABS: HEMATOCRIT 37.3 % (39.0-53.0); HEMOGLOBIN 12.6 g/dL (13.0-17.5); RED BLOOD COUNT 3.73 x10^6/uL (4.30-5.70); RED CELL DISTRIBUTION WIDTH 13.4 % (11.5-14.5); WHITE BLOOD COUNT 7.4 x10^3/uL (4.0-11.0)
[2019-10-16 06:54] LABS: CALCIUM 8.4 mg/dL (8.5-10.1); CREATININE 1.2 mg/dL (0.7-1.3); POTASSIUM 3.7 mmol/L (3.5-5.1)
[2019-10-16] MEDS: FOLIC ACID 1 MG TABLET PO SCH (08:19)
[2019-10-16] MEDS: THIAMINE 100 MG TABLET. PO SCH (08:19)
[2019-10-16] MEDS: CIPROFLOXACIN 400MG PREMIX 200 ML IV SCH (08:19)
--- NOTE | 2019-10-16 09:13 | DS ---
DATE OF DISCHARGE: 10/16/2019 ATTENDING PHYSICIAN: Dr. Olguin. FINAL DISCHARGE DIAGNOSES: 1. Acute diverticulitis, resolving. 2. Left lower quadrant pain. 3. Mild dehydration. 4. Chronic anticoagulation. 5. History of rectal bleeding. HISTORY AND PHYSICAL: This is a 64-year-old gentleman with acute left lower quadrant pain, diagnosis was made in the ED with acute diverticulitis. He was admitted for further treatment and p.o. fluids, antibiotics and pain management. PHYSICAL EXAMINATION: Please see the dictated note. PERTINENT LABORATORY AND X-RAY STUDIES: Initial white count was 15,400, hemoglobin 15.2 gram, repeated was down to 7.4. Chemistry panel shows stable BUN and creatinine. Creatinine was down to 1.2 mg percent, nonfasting blood sugar 100. CT of the abdomen as noted. COURSE IN THE HOSPITAL: The patient was admitted. He received 3 days of IV antibiotics, pain was managed, diet was advanced. He did well. On the third day, he was feeling better, we recommended 5 more days of Flagyl 500 mg t.i.d. I explained to him the disulfiram reaction. I recommended Cipro 500 b.i.d., also Percocet 10 mg every 8 hours p.r.n. pain. Continuation of his home meds including his apixaban and diltiazem. He will follow up with his PCP. Strong encouragement to avoid foods with seeds in it. Total discharge summary of 38 minutes. ROSALIE MORENO MD DR: JOSE MANUEL/devin JOB#: [id number] / [id number] PAKO Apodaca MD
[2019-10-16] MEDS ORDERED: NEO/POLYMYX/DEXAMETH OPHTH SUSPENSION 5ML BOTTLE. OS SCH (10:00)
[2019-10-16] MEDS ORDERED: LACTOBACILLUS RHAMNOSUS GG 1 CAPSULE. PO SCH (21:00)
== END 2019-10-16 10:24 | disposition home or self-care (01) | DRG 392 ==
LOC: ER 03:49 → 1 SOUTH 08:57
PROVIDERS: ADMIT Internal Medicine; ATTEND Internal Medicine
DX: K57.92 Diverticulitis of intestine, part unspecified, without perforation or abscess without bleeding (principal); D72.829 Elevated white blood cell count, unspecified; I10 Essential (primary) hypertension; I25.2 Old myocardial infarction; E78.5 Hyperlipidemia, unspecified; I25.10 Atherosclerotic heart disease of native coronary artery without angina pectoris; E86.0 Dehydration; M15.9 Polyosteoarthritis, unspecified; Z79.01 Long term (current) use of anticoagulants; Z85.46 Personal history of malignant neoplasm of prostate; Z86.73 Personal history of transient ischemic attack (TIA), and cerebral infarction without residual deficits; Z87.891 Personal history of nicotine dependence; Z90.79 Acquired absence of other genital organ(s); Z95.5 Presence of coronary angioplasty implant and graft
CPT/HCPCS: 36415; 74177; 80048; 80053; 80076; 81001; 82274; 85007; 85025; 85027; 85610; 85730; J0744; J2405; J3010; J3490; J7030; 99285-25